=== PATIENT | male | born 1970 | race Caucasian/White ===

== ENCOUNTER 2017-09-11 10:09 | Emergency (ER) | payer MEDICARE, OTHER ==
[2017-09-11 10:15] VITALS: RESP 18; TEMP 98.1
--- NOTE | 2017-09-11 10:30 | ED ---
General Adult HPI - General Chief complaint: Headache Stated complaint: headache Time Seen by Provider: 09/11/17 10:24 Source: patient, RN notes reviewed, old records reviewed Mode of arrival: ambulatory Limitations: no limitations - History of Present Illness Initial comments: This is a 46-year-old male the ER today. Patient is presenting today for evaluation of headache. Patient has history of high blood pressure, patient presents today for evaluation of elevated blood pressure secondary to being off blood pressure medications. Patient states he has headache which is related to not being on his blood pressure medications. He has had this problem in the past. Been off blood pressure medications for quite some time per patient here for medication refill. Denies trauma denies neck pain denies fever - Related Data Home Medications Medication Instructions Recorded Confirmed Multivitamins, Thera [Multivitamin 1 tab PO DAILY 09/11/17 09/11/17 (formulary)] amLODIPine BESYLATE/BENAZEPRIL 1 cap PO DAILY 09/11/17 09/11/17 [Lotrel 10-20 mg Capsule] Allergies Allergy/AdvReac Type Severity Reaction Status Date / Time No Known Allergies Allergy Verified 09/11/17 10:34 Review of Systems ROS Statement: Those systems with pertinent positive or pertinent negative responses have been documented in the HPI. ROS Other: All systems not noted in ROS Statement are negative. Past Medical History Past Medical History: Hypertension History of Any Multi-Drug Resistant Organisms: None Reported Past Surgical History: No Surgical Hx Reported Past Psychological History: No Psychological Hx Reported Smoking Status: Current every day smoker Past Alcohol Use History: None Reported Past Drug Use History: None Reported General Exam Limitations: no limitations General appearance: alert, in no apparent distress Head exam: Present: atraumatic, normocephalic, normal inspection Eye exam: Present: normal appearance, PERRL, EOMI. Absent: scleral icterus, conjunctival injection, periorbital swelling ENT exam: Present: normal exam, mucous membranes moist Neck exam: Present: normal inspection. Absent: tenderness, meningismus, lymphadenopathy Respiratory exam: Present: normal lung sounds bilaterally. Absent: respiratory distress, wheezes, rales, rhonchi, stridor Cardiovascular Exam: Present: regular rate, normal rhythm, normal heart sounds. Absent: systolic murmur, diastolic murmur, rubs, gallop, clicks GI/Abdominal exam: Present: soft, normal bowel sounds. Absent: distended, tenderness, guarding, rebound, rigid Extremities exam: Present: normal inspection, full ROM, normal capillary refill. Absent: tenderness, pedal edema, joint swelling, calf tenderness Back exam: Present: normal inspection Neurological exam: Present: alert, oriented X3, CN II-XII intact Psychiatric exam: Present: normal affect, normal mood Skin exam: Present: warm, dry, intact, normal color. Absent: rash Course Vital Signs 09/11/17 10:12 Temperature 98.1 F Pulse Rate 64 Respiratory 18 Rate Blood Pressure 172/96 O2 Sat by Pulse 99 Oximetry - Reevaluation(s) Reevaluation #1: 09/11/17 11:42 Patient's headache is improved Medical Decision Making - Medical Decision Making 46 male to the ED co VERMA, blood pressure medication, we'll rewrite patient's blood pressure prescriptions and discharged home - Radiology Data Radiology results: report reviewed (CT brain negative for acute disease), image reviewed Disposition Clinical Impression: Migraine Disposition: HOME SELF-CARE Condition: Good Instructions: Acute Headache (ED) Is patient prescribed a controlled substance at d/c from ED?: No Referrals: Nonstaff,Physician [Primary Care Provider] - 1-2 days
[2017-09-11] MEDS ORDERED: cloNIDine HCL 0.1 MG TAB PO STA (10:43)
[2017-09-11] MEDS ORDERED: LISINOPRIL 10 MG TAB PO STA (10:43)
[2017-09-11] MEDS ORDERED: amLODIPine 5 MG TAB PO STA (10:43)
--- NOTE | 2017-09-11 11:34 | CT ---
EXAMINATION TYPE: CT brain wo con DATE OF EXAM: 09/11/2017 COMPARISON: NONE HISTORY: Headache CT DLP: 1207 mGycm. Automated Exposure Control for Dose Reduction was Utilized. TECHNIQUE: CT scan of the head is performed without contrast. FINDINGS: There is no acute intracranial hemorrhage, mass effect, or midline shift identified. The ventricles and sulci are within normal limits in size. Some vague areas of low-attenuation in the w cherelle matter are present, nonspecific finding, for reference posterior left frontal region axial image 36. Patchy opacification anterior ethmoid sinuses is seen near axial image 21 otherwise paranasal si nuses are clear. The globes are intact bilaterally. IMPRESSION: No acute intracranial hemorrhage or midline shift is seen. Mild to moderate nonspecific white matter changes, among the broad differential ischemic change related to product of migraine hea daches needs to BE considered. Consider nonemergent neurology referral to further assess.
[2017-09-11 11:49] VITALS: BP 138/87; PULSE 54
== END 2017-09-11 12:08 | disposition home or self-care (01) ==
LOC: EC 10:09
DX: G43.909 Migraine, unspecified, not intractable, without status migrainosus (principal); Z76.0 Encounter for issue of repeat prescription; I10 Essential (primary) hypertension; F17.200 Nicotine dependence, unspecified, uncomplicated; Z79.899 Other long term (current) drug therapy
CPT/HCPCS: 70450; 99284

== ENCOUNTER 2017-12-09 14:57 | Emergency (ER) | payer MEDICARE, OTHER ==
[2017-12-09 15:02] VITALS: TEMP 98.3
--- NOTE | 2017-12-09 15:48 | ED ---
Male Urogenital HPI - General Chief complaint: Urogenital Stated complaint: Male Time Seen by Provider: 12/09/17 15:29 Source: patient, RN notes reviewed Mode of arrival: ambulatory Limitations: no limitations - History of Present Illness Initial comments: This is a 39-year-old male with a history of hypertension family history of kidney stones no personal history thereof who states he's been having pain when he finishes urinating is some pain when he has intercourse recently. He states the pain is sharp when he does have it. He states currently he is pain-free he states it starts in both lower groin areas and goes up more so on the right than the left foot happens. He denies any fevers he has had occasional chills no sweats he states it feels very similar to when he had prostatism about 5 years ago. He has no other complaints at this time other than to say that he ran out of his blood pressure medication. MD Complaint: dysuria - Related Data Home Medications Medication Instructions Recorded Confirmed Multivitamins, Thera [Multivitamin 1 tab PO DAILY 09/11/17 09/11/17 (formulary)] Previous Rx's Medication Instructions Recorded amLODIPine BESYLATE/BENAZEPRIL 1 cap PO DAILY #60 capsule 09/11/17 [Lotrel 10-20 mg Capsule] Sulfamethox-Tmp 800-160Mg [Bactrim 2 each PO Q12HR #90 tab 12/09/17 DS 800-160 mg] Tamsulosin HCl [Flomax] 0.4 mg PO DAILY #7 capsule 12/09/17 amLODIPine BESYLATE/BENAZEPRIL 1 cap PO DAILY #60 cap 12/09/17 [Lotrel 10-20 mg Capsule] Allergies Allergy/AdvReac Type Severity Reaction Status Date / Time No Known Allergies Allergy Verified 12/09/17 15:02 Review of Systems ROS Statement: Those systems with pertinent positive or pertinent negative responses have been documented in the HPI. ROS Other: All systems not noted in ROS Statement are negative. Past Medical History Past Medical History: Hypertension History of Any Multi-Drug Resistant Organisms: None Reported Past Surgical History: No Surgical Hx Reported Past Psychological History: No Psychological Hx Reported Smoking Status: Current every day smoker Past Alcohol Use History: Occasional Past Drug Use History: Marijuana General Exam - General Exam Comments Initial Comments: This is a well-developed well-nourished awake alert oriented 3 male Limitations: no limitations General appearance: alert, in no apparent distress Head exam: Present: atraumatic, normocephalic, normal inspection Eye exam: Present: normal appearance, PERRL, EOMI. Absent: scleral icterus, conjunctival injection, periorbital swelling ENT exam: Present: normal exam, mucous membranes moist Neck exam: Present: normal inspection. Absent: tenderness, meningismus, lymphadenopathy Respiratory exam: Present: normal lung sounds bilaterally. Absent: respiratory distress, wheezes, rales, rhonchi, stridor Cardiovascular Exam: Present: regular rate, normal rhythm, normal heart sounds. Absent: systolic murmur, diastolic murmur, rubs, gallop, clicks GI/Abdominal exam: Present: soft, tenderness (Very mild discomfort to palpation over the lower abdomen more swelling right than the left and suprapubic area.), normal bowel sounds. Absent: distended, guarding, rebound, rigid Rectal exam: Present: deferred exam: Present: normal inspection, circumcision, other (No evidence of any inguinal hernias this time.). Absent: testicular tenderness, urethral discharge , scrotal swelling Extremities exam: Present: normal inspection, full ROM, normal capillary refill. Absent: tenderness, pedal edema, joint swelling, calf tenderness Back exam: Present: normal inspection Neurological exam: Present: alert, oriented X3, CN II-XII intact Psychiatric exam: Present: normal affect, normal mood Skin exam: Present: warm, dry, intact, normal color. Absent: rash Course Vital Signs 12/09/17 14:58 Temperature 98.3 F Pulse Rate 73 Respiratory 18 Rate Blood Pressure 167/95 O2 Sat by Pulse 98 Oximetry Medical Decision Making - Medical Decision Making I did discuss findings the patient is symptoms are consistent with prostatism. He'll be placed on appropriate medication he also did request refill of his blood pressure meds which I will do for him he'll follow-up with his doctor return when necessary he also does state he's been having frequency at night - Lab Data Result diagrams: 12/09/17 16:13 12/09/17 16:13 Lab Results 12/09/17 12/09/17 12/09/17 Range/Units 16:13 16:13 16:13 WBC 6.5 (3.8-10.6) k/uL RBC 4.66 (4.30-5.90) m/uL Hgb 14.8 (13.0-17.5) gm/dL Hct 44.4 (39.0-53.0) % MCV 95.3 (80.0-100.0) fL MCH 31.7 (25.0-35.0) pg MCHC 33.3 (31.0-37.0) g/dL RDW 12.4 (11.5-15.5) % Plt Count 282 (150-450) k/uL Neutrophils % 63 % Lymphocytes % 25 % Monocytes % 6 % Eosinophils % 4 % Basophils % 1 % Neutrophils # 4.1 (1.3-7.7) k/uL Lymphocytes # 1.6 (1.0-4.8) k/uL Monocytes # 0.4 (0-1.0) k/uL Eosinophils # 0.3 (0-0.7) k/uL Basophils # 0.0 (0-0.2) k/uL Sodium 141 (137-145) mmol/L Potassium 4.0 (3.5-5.1) mmol/L Chloride 108 H (98-107) mmol/L Carbon Dioxide 26 (22-30) mmol/L Anion Gap 7 mmol/L BUN 16 (9-20) mg/dL Creatinine 0.89 (0.66-1.25) mg/dL Est GFR (CKD-EPI)AfAm >90 (>60 ml/min/1.73 sqM) Est GFR (CKD-EPI)NonAf >90 (>60 ml/min/1.73 sqM) Glucose 90 (74-99) mg/dL Calcium 9.4 (8.4-10.2) mg/dL Magnesium 1.7 (1.6-2.3) mg/dL Total Bilirubin 0.6 (0.2-1.3) mg/dL AST 21 (17-59) U/L ALT 29 (21-72) U/L Alkaline Phosphatase 52 (38-126) U/L Total Protein 6.7 (6.3-8.2) g/dL Albumin 4.1 (3.5-5.0) g/dL Lipase 124 (23-300) U/L Urine Color Light Yellow Urine Appearance Clear (Clear) Urine pH 5.5 (5.0-8.0) Ur Specific Iron 1.011 (1.001-1.035) Urine Protein Negative (Negative) Urine Glucose (UA) Negative (Negative) Urine Ketones Negative (Negative) Urine Blood Negative (Negative) Urine Nitrite Negative (Negative) Urine Bilirubin Negative (Negative) Urine Urobilinogen <2.0 (<2.0) mg/dL Ur Leukocyte Esterase Trace H (Negative) Urine WBC 3 (0-5) /hpf Urine Bacteria Rare H (None) /hpf - Radiology Data Radiology results: report reviewed (Review the imaging shows no acute findings.) , image reviewed Disposition Clinical Impression: Prostatism, Prostatitis, Hypertension Disposition: HOME SELF-CARE Condition: Good Instructions: Prostatitis (ED) Prescriptions: amLODIPine BESYLATE/BENAZEPRIL [Lotrel 10-20 mg Capsule] 1 cap PO DAILY #60 cap Sulfamethox-Tmp 800-160Mg [Bactrim DS 800-160 mg] 2 each PO Q12HR #90 tab Tamsulosin HCl [Flomax] 0.4 mg PO DAILY #7 capsule Is patient prescribed a controlled substance at d/c from ED?: No Referrals: None,Stated [Primary Care Provider] - 1-2 days
[2017-12-09 16:30] LABS: Basophils % (A) 1 %; Eosinophils # (A) 0.3 k/uL (0-0.7); Eosinophils % (A) 4 %; HCT 44.4 % (39.0-53.0); HGB 14.8 gm/dL (13.0-17.5); Lymphocytes # (A) 1.6 k/uL (1.0-4.8); Lymphocytes % (A) 25 %; MCH 31.7 pg (25.0-35.0); MCHC 33.3 g/dL (31.0-37.0); MCV 95.3 fL (80.0-100.0); Mean Platelet Volume 6.5; Monocytes # (A) 0.4 k/uL (0-1.0); Monocytes % (A) 6 %; Neutrophils # (A) 4.1 k/uL (1.3-7.7); Neutrophils % (A) 63 %; Platelet Count 282 k/uL (150-450); RBC 4.66 m/uL (4.30-5.90); RDW 12.4 % (11.5-15.5); WBC 6.5 k/uL (3.8-10.6)
[2017-12-09 16:36] LABS: Appearance,Urine Clear (Clear); Bacteria,Urine Rare /hpf; Bilirubin,Urine Negative (Negative); Blood,Urine Negative (Negative); Color,Urine Light Yellow; Glucose,Urine (UA) Negative (Negative); Ketones,Urine Negative (Negative); Leukocyte Esterase,Urine Trace (Negative); Nitrite,Urine Negative (Negative); PH, Urine 5.5 (5.0-8.0); Protein,Urine Negative (Negative); Specific Gravity,Urine 1.011 (1.001-1.035); Urobilinogen,Urine <2.0 mg/dL (<2.0); WBC,Urine 3 /hpf (0-5)
[2017-12-09 16:39] LABS: ALT 29 U/L (21-72); AST 21 U/L (17-59); Albumin 4.1 g/dL (3.5-5.0); Alkaline Phosphatase 52 U/L (38-126); Anion Gap 7 mmol/L; Blood Urea Nitrogen 16 mg/dL (9-20); Calcium 9.4 mg/dL (8.4-10.2); Carbon Dioxide 26 mmol/L (22-30); Chloride 108 mmol/L (98-107); Glucose 90 mg/dL (74-99); Lipase 124 U/L (23-300); Magnesium 1.7 mg/dL (1.6-2.3); Sodium 141 mmol/L (137-145); Total Bilirubin 0.6 mg/dL (0.2-1.3); Total Protein 6.7 g/dL (6.3-8.2)
[2017-12-09 17:17] VITALS: BP 138/78; PULSE 58; RESP 14
--- NOTE | 2017-12-09 17:34 | XR ---
EXAMINATION TYPE: XR KUB DATE OF EXAM: 12/09/2017 COMPARISON: NONE HISTORY: Abdominal pain TECHNIQUE: 2 views FINDINGS: There is no sign of intestinal obstruction or pneumoperitoneum. Fecal pattern is normal. Th ere is no evidence of a mass. There are no pathologic calcifications over the kidneys. IMPRESSION: Nonacute abdomen.
== END 2017-12-09 17:32 | disposition home or self-care (01) ==
LOC: EC 14:57
DX: N40.0 Benign prostatic hyperplasia without lower urinary tract symptoms (principal); N41.9 Inflammatory disease of prostate, unspecified; I10 Essential (primary) hypertension; F17.200 Nicotine dependence, unspecified, uncomplicated
CPT/HCPCS: 36415; 74018; 80053; 81001; 83690; 83735; 85025; 99283

== ENCOUNTER 2018-01-13 15:22 | Emergency (ER) | payer MEDICARE, OTHER ==
[2018-01-13 15:30] VITALS: BP 125/82; PULSE 70; RESP 20; TEMP 98.1
[2018-01-13] MEDS ORDERED: ACETAMINOPHEN TAB 500 MG TAB PO STA (15:59)
--- NOTE | 2018-01-13 15:59 | ED ---
General Adult HPI - General Chief complaint: Headache Stated complaint: Headache/popped jaw Time Seen by Provider: 01/13/18 15:33 Source: patient, RN notes reviewed Mode of arrival: ambulatory Limitations: no limitations - History of Present Illness Initial comments: Patient is a 47-year-old male with history of HTN who presents the emergency department with complaints of right-sided jaw pain and headache for 2 weeks. He reports that he has dislocated his jaw in the past. He states that he yawned and and felt his jaw pop and that the pain and headache has been there ever since. The headache is over the right pentec[employer]ism and is constant and worse with lying on the right side. The jaw pain and headache are worse with chewing. He is been taking ibuprofen for pain which has helped some. Admits to right-sided neck pain. Denies history of migraines or anticoagulant use. Patient denies any recent dizziness, trauma, fever, chills, shortness of breath, chest pain, back pain, abdominal pain, nausea or vomiting, numbness or tingling, visual changes, or any other complaints. - Related Data Home Medications Medication Instructions Recorded Confirmed Multivitamins, Thera [Multivitamin 1 tab PO DAILY 09/11/17 01/13/18 (formulary)] Ibuprofen 800 mg PO DAILY 01/13/18 01/13/18 Previous Rx's Medication Instructions Recorded amLODIPine BESYLATE/BENAZEPRIL 1 cap PO DAILY #60 capsule 09/11/17 [Lotrel 10-20 mg Capsule] Allergies Allergy/AdvReac Type Severity Reaction Status Date / Time No Known Allergies Allergy Verified 01/13/18 16:09 Review of Systems ROS Statement: Those systems with pertinent positive or pertinent negative responses have been documented in the HPI. ROS Other: All systems not noted in ROS Statement are negative. Past Medical History Past Medical History: Hypertension History of Any Multi-Drug Resistant Organisms: None Reported Past Surgical History: No Surgical Hx Reported Past Psychological History: No Psychological Hx Reported Smoking Status: Current every day smoker Past Alcohol Use History: Occasional Past Drug Use History: Marijuana General Exam Limitations: no limitations General appearance: alert, in no apparent distress Head exam: Present: atraumatic, normocephalic Eye exam: Present: normal appearance, PERRL, EOMI ENT exam: Present: normal exam, normal oropharynx, TM's normal bilaterally, normal external ear exam Neck exam: Present: normal inspection, tenderness (Mild tenderness to palpation over the right neck musculature. No midline spinal tenderness.), full ROM Respiratory exam: Present: normal lung sounds bilaterally Cardiovascular Exam: Present: regular rate, normal rhythm Extremities exam: Present: full ROM Neurological exam: Present: alert, oriented X3, CN II-XII intact, normal gait Psychiatric exam: Present: normal affect, normal mood Skin exam: Present: warm, dry Course Vital Signs 01/13/18 15:28 Temperature 98.1 F Pulse Rate 70 Respiratory 20 Rate Blood Pressure 125/82 O2 Sat by Pulse 99 Oximetry Medical Decision Making - Medical Decision Making Patient is a 47-year-old male who presents the emergency department because he thinks his jaw is dislocated and he has a headache. Neuro exam is normal. X- ray is negative for dislocation. Patient states that his headache has improved with Excedrin. Case discussed in detail with attending physician Dr. Tubbs. Disposition Clinical Impression: Headache, Jaw pain Disposition: HOME SELF-CARE Condition: Good Instructions: Acute Headache (ED) Additional Instructions: Follow-up with PCP in 2 days. Return to emergency department if symptoms worsen or any other concerns. Is patient prescribed a controlled substance at d/c from ED?: No Referrals: None,Stated [Primary Care Provider] - 1-2 days Diandra De La Cruz MD [REFERRING] - 1-2 days Chaitanya Alberto DO [STAFF PHYSICIAN] - 1-2 days Time of Disposition: 17:39
[2018-01-13] MEDS ORDERED: ASPIRIN-ACET-CAFF 250-250-65MG 1 EACH TAB PO STA (16:17)
--- NOTE | 2018-01-13 16:41 | XR ---
EXAMINATION TYPE: XR mandible complete DATE OF EXAM: 01/13/2018 COMPARISON: NONE HISTORY: Headache. Jaw pain TECHNIQUE: 5 views FINDINGS: Mandibular ring appears intact. Temporomandibular joints appear normal. I see no bony destr uctive process. IMPRESSION: Normal mandible.
== END 2018-01-13 17:45 | disposition home or self-care (01) ==
LOC: EC 15:22
DX: R51 Headache (principal); R68.84 Jaw pain; M54.2 Cervicalgia; F17.200 Nicotine dependence, unspecified, uncomplicated; Z79.1 Long term (current) use of non-steroidal anti-inflammatories (NSAID)
CPT/HCPCS: 70110; 99284